=== PATIENT | female | born 1980 | race Caucasian/White ===

== ENCOUNTER 2017-08-20 13:10 | Emergency (ER) | payer OTHER ==
[~2017-08-20] VITALS: Ht 147.3 cm; Wt 68.0 kg
[2017-08-20 13:16] VITALS: Ht 147.3 cm; Wt 68.0 kg
--- NOTE | 2017-08-20 14:52 | ERD ---
ER Documentation Chief Complaint Chief Complaint LOWER BACK PAIN S/P FALL X2 DAYS AGO HPI 36-year-old female otherwise healthy comes in with low back pain and sacrococcygeal pain after slipping and falling in the shower 2 days ago. Patient's pain is moderate to severe, worse with movement and better with sitting position, and is localized to the sacrococcygeal area. She has no radicular symptoms, denies saddle anesthesia loss of bowel bladder function. She is not taking anything for pain so far. ROS All systems reviewed and are negative except as per history of present illness. Medications Home Meds Active Scripts Tramadol HCl (Tramadol HCl) 50 Mg Tablet, 50 MG PO Q4 Y for PAIN, #20 TAB Prov:JOSSELINE WHEELER PA-C 08/20/17 PMhx/Soc Social history: live with family at home Medical and Surgical Hx: pt denies Medical Hx Hx Tobacco Use: No Physical Exam Vitals Vital Signs Date Time Temp Pulse Resp B/P Pulse Ox O2 Delivery O2 Flow Rate FiO2 08/20/17 13:16 98.1 96 18 156/91 99 Physical Exam General: Well-developed, well-nourished. The patient appears in no acute distress. HEENT: Head is normocephalic, atraumatic. No scleral icterus. Neck: Supple. Nontender. Lungs: Clear to auscultation. Normal air movement. Heart: Regular rate and rhythm. S1 and S2 are normal. No murmurs, gallops, or rubs. Abdomen: Soft, nontender, nondistended. Bowel sounds are normoactive. : There is no lumbar tenderness, lumbosacral joint pain on the left side as well as the right, excisional pain with palpation, strength lower extremities 5 out of 5 bilaterally. Extremities: No clubbing or cyanosis. Normal pulses. Moving extremities x 4. No weakness. Neurologic: Alert and oriented 3. No focal deficits. Skin: Normal turgor. No rash or lesions. Results 24 hrs Current Medications Medications (Trade) Dose Ordered Sig/Say Route PRN Reason Start Time Stop Time Status Last Admin Dose Admin Ibuprofen (Motrin) 600 mg ONCE ONCE PO 08/20/17 15:00 08/20/17 15:01 DC 08/20/17 15:51 Acetaminophen/ Hydrocodone Bitart ([place] (5/325)) 1 tab ONCE ONCE PO 08/20/17 15:00 08/20/17 15:01 DC 08/20/17 15:51 DIAGNOSTIC IMAGING REPORT Patient: ELLA QUIÑONEZ : 1980 Age: 36 Sex: F MR #: [id number] DOS: 08/20/17 1448 Ordering MD: JOSSELINE WHEELER PA-C Location: [facility] Room/Bed: PROCEDURE: XR Pelvis CLINICAL INDICATION: Fell inch our 2 days ago TECHNIQUE: An AP radiograph was submitted. COMPARISON: None FINDINGS: Osseous structures: appear well mineralized and intact with no fracture or destructive process identified. Joint spaces: The hip joints appear unremarkable. There is no distension of either joint capsule. the sacroiliac joints appear unremarkable without significant erosions or sclerosis. Soft tissues: appear unremarkable. IMPRESSION: Unremarkable pelvis. Physician Mikhail Date Time Electronically viewed and signed by Physician Mikhail on 08/20/2017 15:53 RH/ CC: JOSSEILNE WHEELER PA-C DIAGNOSTIC IMAGING REPORT Patient: ELLA QUIÑONEZ : 1980 Age: 36 Sex: F MR #: [id number] DOS: 08/20/17 1448 Ordering MD: JOSSELINE WHEELER PA-C Location: [facility] Room/Bed: PROCEDURE: XR Sacrum and Coccyx CLINICAL INDICATION: Fell in shower 2 days ago TECHNIQUE: AP inlet and outlet views and a lateral view were submitted. COMPARISON: None FINDINGS: Osseous structures: appear well mineralized and intact with no fracture or destructive process identified. Joint spaces: the sacroiliac joints appear unremarkable without significant erosions or sclerosis. Soft tissues: appear unremarkable. IMPRESSION: Unremarkable sacrum and coccyx study. Physician Mikhail Date Time Electronically viewed and signed by Physician Mikhail on 08/20/2017 15:52 RH/ CC: JOSSELINE WHEELER PA-C Procedures/[facility] ED course: Patient's urine was negative, she was given ibuprofen 600 mg and [place] for pain. Medical decision makin-year-old female slipped and fell in the shower 2 days ago and complains of buttock pain, x-rays of the pelvis, x-ray of the sacrum coccyx are normal, no evidence of fracture. Patient does not show any signs of cauda equina. Patient presents with a contusion of her pelvis and coccygeal region. She does not have any lumbar back pain, will be advised to continue tramadol for home. Departure Diagnosis: Primary Impression: Contusion, back Condition: Good JOSSELINE WHEELER PA-C Aug 20, 2017 14:52
--- NOTE | 2017-08-20 14:52 | ERD ---
ER Documentation Chief Complaint Chief Complaint LOWER BACK PAIN S/P FALL X2 DAYS AGO HPI 36-year-old female otherwise healthy comes in with low back pain and sacrococcygeal pain after slipping and falling in the shower 2 days ago. Patient's pain is moderate to severe, worse with movement and better with sitting position, and is localized to the sacrococcygeal area. She has no radicular symptoms, denies saddle anesthesia loss of bowel bladder function. She is not taking anything for pain so far. ROS All systems reviewed and are negative except as per history of present illness. Medications Home Meds Active Scripts Tramadol HCl (Tramadol HCl) 50 Mg Tablet, 50 MG PO Q4 Y for PAIN, #20 TAB Prov:JOSSELINE WHEELER PA-C 08/20/17 PMhx/Soc Social history: live with family at home Medical and Surgical Hx: pt denies Medical Hx Hx Tobacco Use: No Physical Exam Vitals Vital Signs Date Time Temp Pulse Resp B/P Pulse Ox O2 Delivery O2 Flow Rate FiO2 08/20/17 13:16 98.1 96 18 156/91 99 Physical Exam General: Well-developed, well-nourished. The patient appears in no acute distress. HEENT: Head is normocephalic, atraumatic. No scleral icterus. Neck: Supple. Nontender. Lungs: Clear to auscultation. Normal air movement. Heart: Regular rate and rhythm. S1 and S2 are normal. No murmurs, gallops, or rubs. Abdomen: Soft, nontender, nondistended. Bowel sounds are normoactive. : There is no lumbar tenderness, lumbosacral joint pain on the left side as well as the right, excisional pain with palpation, strength lower extremities 5 out of 5 bilaterally. Extremities: No clubbing or cyanosis. Normal pulses. Moving extremities x 4. No weakness. Neurologic: Alert and oriented 3. No focal deficits. Skin: Normal turgor. No rash or lesions. Results 24 hrs Current Medications Medications (Trade) Dose Ordered Sig/Say Route PRN Reason Start Time Stop Time Status Last Admin Dose Admin Ibuprofen (Motrin) 600 mg ONCE ONCE PO 08/20/17 15:00 08/20/17 15:01 DC 08/20/17 15:51 Acetaminophen/ Hydrocodone Bitart ([place] (5/325)) 1 tab ONCE ONCE PO 08/20/17 15:00 08/20/17 15:01 DC 08/20/17 15:51 DIAGNOSTIC IMAGING REPORT Patient: ELLA QUIÑONEZ : 1980 Age: 36 Sex: F MR #: [id number] DOS: 08/20/17 1448 Ordering MD: JOSSELINE WHEELER PA-C Location: [facility]TE Room/Bed: PROCEDURE: XR Pelvis CLINICAL INDICATION: Fell inch our 2 days ago TECHNIQUE: An AP radiograph was submitted. COMPARISON: None FINDINGS: Osseous structures: appear well mineralized and intact with no fracture or destructive process identified. Joint spaces: The hip joints appear unremarkable. There is no distension of either joint capsule. the sacroiliac joints appear unremarkable without significant erosions or sclerosis. Soft tissues: appear unremarkable. IMPRESSION: Unremarkable pelvis. Physician Mikhail Date Time Electronically viewed and signed by Physician Mikhail on 08/20/2017 15:53 RH/ CC: JOSSELINE WHEELER PA-C DIAGNOSTIC IMAGING REPORT Patient: ELLA QUIÑONEZ : 1980 Age: 36 Sex: F MR #: [id number] DOS: 08/20/17 1448 Ordering MD: JOSSELINE WHEELER PA-C Location: [facility]TE Room/Bed: PROCEDURE: XR Sacrum and Coccyx CLINICAL INDICATION: Fell in shower 2 days ago TECHNIQUE: AP inlet and outlet views and a lateral view were submitted. COMPARISON: None FINDINGS: Osseous structures: appear well mineralized and intact with no fracture or destructive process identified. Joint spaces: the sacroiliac joints appear unremarkable without significant erosions or sclerosis. Soft tissues: appear unremarkable. IMPRESSION: Unremarkable sacrum and coccyx study. Physician Mikhail Date Time Electronically viewed and signed by Physician Mikhail on 08/20/2017 15:52 RH/ CC: JOSSELINE WHEELER PA-C Procedures/[facility] ED course: Patient's urine was negative, she was given ibuprofen 600 mg and [place] for pain. Medical decision makin-year-old female slipped and fell in the shower 2 days ago and complains of buttock pain, x-rays of the pelvis, x-ray of the sacrum coccyx are normal, no evidence of fracture. Patient does not show any signs of cauda equina. Patient presents with a contusion of her pelvis and coccygeal region. She does not have any lumbar back pain, will be advised to continue tramadol for home. Departure Diagnosis: Primary Impression: Contusion, back Condition: Good JOSSELINE WHEELER PA-C Aug 20, 2017 14:52
--- NOTE | 2017-08-20 14:52 | ERD ---
ER Documentation Chief Complaint Chief Complaint LOWER BACK PAIN S/P FALL X2 DAYS AGO HPI 36-year-old female otherwise healthy comes in with low back pain and sacrococcygeal pain after slipping and falling in the shower 2 days ago. Patient's pain is moderate to severe, worse with movement and better with sitting position, and is localized to the sacrococcygeal area. She has no radicular symptoms, denies saddle anesthesia loss of bowel bladder function. She is not taking anything for pain so far. ROS All systems reviewed and are negative except as per history of present illness. Medications Home Meds Active Scripts Tramadol HCl (Tramadol HCl) 50 Mg Tablet, 50 MG PO Q4 Y for PAIN, #20 TAB Prov:JOSSELINE WHEELER PA-C 08/20/17 PMhx/Soc Social history: live with family at home Medical and Surgical Hx: pt denies Medical Hx Hx Tobacco Use: No Physical Exam Vitals Vital Signs Date Time Temp Pulse Resp B/P Pulse Ox O2 Delivery O2 Flow Rate FiO2 08/20/17 13:16 98.1 96 18 156/91 99 Physical Exam General: Well-developed, well-nourished. The patient appears in no acute distress. HEENT: Head is normocephalic, atraumatic. No scleral icterus. Neck: Supple. Nontender. Lungs: Clear to auscultation. Normal air movement. Heart: Regular rate and rhythm. S1 and S2 are normal. No murmurs, gallops, or rubs. Abdomen: Soft, nontender, nondistended. Bowel sounds are normoactive. : There is no lumbar tenderness, lumbosacral joint pain on the left side as well as the right, excisional pain with palpation, strength lower extremities 5 out of 5 bilaterally. Extremities: No clubbing or cyanosis. Normal pulses. Moving extremities x 4. No weakness. Neurologic: Alert and oriented 3. No focal deficits. Skin: Normal turgor. No rash or lesions. Results 24 hrs Current Medications Medications (Trade) Dose Ordered Sig/Say Route PRN Reason Start Time Stop Time Status Last Admin Dose Admin Ibuprofen (Motrin) 600 mg ONCE ONCE PO 08/20/17 15:00 08/20/17 15:01 DC 08/20/17 15:51 Acetaminophen/ Hydrocodone Bitart ([place] (5/325)) 1 tab ONCE ONCE PO 08/20/17 15:00 08/20/17 15:01 DC 08/20/17 15:51 DIAGNOSTIC IMAGING REPORT Patient: ELLA QUIÑONEZ : 1980 Age: 36 Sex: F MR #: [id number] DOS: 08/20/17 1448 Ordering MD: JOSSELINE WHEELER PA-C Location: [facility]TE Room/Bed: PROCEDURE: XR Pelvis CLINICAL INDICATION: Fell inch our 2 days ago TECHNIQUE: An AP radiograph was submitted. COMPARISON: None FINDINGS: Osseous structures: appear well mineralized and intact with no fracture or destructive process identified. Joint spaces: The hip joints appear unremarkable. There is no distension of either joint capsule. the sacroiliac joints appear unremarkable without significant erosions or sclerosis. Soft tissues: appear unremarkable. IMPRESSION: Unremarkable pelvis. Physician Mikhail Date Time Electronically viewed and signed by Physician Mikhail on 08/20/2017 15:53 RH/ CC: JOSSELINE WHEELER PA-C DIAGNOSTIC IMAGING REPORT Patient: ELLA QUIOÑNEZ : 1980 Age: 36 Sex: F MR #: [id number] DOS: 08/20/17 1448 Ordering MD: OJSSELINE WHEELER PA-C Location: [facility]TE Room/Bed: PROCEDURE: XR Sacrum and Coccyx CLINICAL INDICATION: Fell in shower 2 days ago TECHNIQUE: AP inlet and outlet views and a lateral view were submitted. COMPARISON: None FINDINGS: Osseous structures: appear well mineralized and intact with no fracture or destructive process identified. Joint spaces: the sacroiliac joints appear unremarkable without significant erosions or sclerosis. Soft tissues: appear unremarkable. IMPRESSION: Unremarkable sacrum and coccyx study. Physician Mikhail Date Time Electronically viewed and signed by Physician Mikhail on 08/20/2017 15:52 RH/ CC: JOSSELINE WHEELER PA-C Procedures/[facility] ED course: Patient's urine was negative, she was given ibuprofen 600 mg and [place] for pain. Medical decision makin-year-old female slipped and fell in the shower 2 days ago and complains of buttock pain, x-rays of the pelvis, x-ray of the sacrum coccyx are normal, no evidence of fracture. Patient does not show any signs of cauda equina. Patient presents with a contusion of her pelvis and coccygeal region. She does not have any lumbar back pain, will be advised to continue tramadol for home. Departure Diagnosis: Primary Impression: Contusion, back Condition: Good JOSSELINE WHEELER PA-C Aug 20, 2017 14:52
[2017-08-20] MEDS ORDERED: HYDROCODONE/APAP (5/325) TAB PO ONE (15:00)
[2017-08-20] MEDS ORDERED: IBUPROFEN 600 MG TAB PO ONE (15:00)
--- NOTE | 2017-08-20 15:52 | RADRPT ---
PROCEDURE: XR Sacrum and Coccyx CLINICAL INDICATION: Fell in shower 2 days ago TECHNIQUE: AP inlet and outlet views and a lateral view were submitted. COMPARISON: None FINDINGS: Osseous structures: appear well mineralized and intact with no fracture or destructive process iden tified. Joint spaces: the sacroiliac joints appear unremarkable without significant erosions or sclerosis. Soft tissues: appear unremarkable. IMPRESSION: Unremarkable sacrum and coccyx study. Physician Mikhail Date Time Electronically viewed and signed by Angely Garcia Physician on 08/20/2017 15:52 RH/
--- NOTE | 2017-08-20 15:53 | RADRPT ---
PROCEDURE: XR Pelvis CLINICAL INDICATION: Fell inch our 2 days ago TECHNIQUE: An AP radiograph was submitted. COMPARISON: None FINDINGS: Osseous structures: appear well mineralized and intact with no fracture or destructive process iden tified. Joint spaces: The hip joints appear unremarkable. There is no distension of either joint capsule. the sacroiliac joints appear unremarkable without significant erosions or sclerosis. Soft tissues: appear unremarkable. IMPRESSION: Unremarkable pelvis. Physician Mikhail Date Time Electronically viewed and signed by Angely Garcia Physician on 08/20/2017 15:53 RH/
[2017-08-20] MEDS ORDERED: TRAM50TA2 PO (15:56)
== END 2017-08-20 16:15 | disposition home or self-care (01) ==
LOC: FTE 13:10
DX: S30.0XXA Contusion of lower back and pelvis, initial encounter (principal); W01.0XXA Fall on same level from slipping, tripping and stumbling without subsequent striking against object, initial encounter; Y92.9 Unspecified place or not applicable
CPT/HCPCS: 72170; 72220